=== PATIENT | female | born 1935 | race African-American/Black ===

== ENCOUNTER 2020-03-16 20:04 | Emergency (ER) | payer MEDICARE ==
[~2020-03-16] VITALS: Ht 154.9 cm; Wt 95.7 kg
[2020-03-16 20:05] VITALS: BP 135/77
[2020-03-16] MEDS ORDERED: Pantoprazole Inj IV ONE (20:15)
[2020-03-16] MEDS ORDERED: Morphine Sulfate 4mg/ml Inj (IV USE ONLY) IVP ONE (20:15)
[2020-03-16] MEDS ORDERED: Omnipaque-300 100ml vial INJ PRN (20:15)
--- NOTE | 2020-03-16 20:24 | Emergency Room Report ---
History of Present Illness General Chief Complaint: Pain Present Illness HPI 84-year-old female here with nontraumatic back pain and black stool. Patient says that she was released from a rehab facility earlier today and she was at home and then had the sudden onset of lower back pain rating down her bilateral lower extremities. Patient is an extremely poor historian and is unable to give further details regarding the back pain. She says that she also has been noticing black stool over the past several days. She feels generally weak. No fevers, chills, chest pain, palpitations, shortness of breath, dysuria. No saddle anesthesia. No urinary or fecal retention or incontinence. Allergies: Uncoded Allergies: ASA (Allergy, Unknown, 03/16/20) PCN (Allergy, Unknown, 03/16/20) SULFA (Allergy, Unknown, 03/16/20) COVID-19 Screening Contact w/high risk pt: No Experienced COVID-19 symptoms?: No COVID-19 Testing performed COLLISION ESTIMATOR: No Review of Systems All Other Systems: negative except mentioned in HPI Physical Exam Vital Signs Date Time Temp Pulse Resp B/P (MAP) Pulse Ox O2 Delivery O2 Flow Rate FiO2 03/16/20 20:00 110 18 211/137 (161) 96 Room Air Sp02 EP Interpretation: reviewed, normal General Appearance: no apparent distress, alert, non-toxic, other - Morbidly obese. Appears chronically ill Head: normocephalic, atraumatic Eyes: bilateral eye normal inspection, bilateral eye PERRL ENT: hearing grossly normal, normal pharynx, no angioedema, normal voice Neck: full range of motion, supple/symm/no masses Respiratory: chest non-tender, lungs clear, normal breath sounds, speaking full sentences Cardiovascular #1: regular rate, rhythm, no edema Cardiovascular #2: 2+ carotid (R), 2+ carotid (L), 2+ radial (R), 2+ radial (L), 2+ dorsalis pedis (R), 2+ dorsalis pedis (L) Gastrointestinal: normal bowel sounds, soft, non-distended, no guarding, no rebound, other - Mild diffuse abdominal tenderness on palpation. No distention Rectal: deferred Genitourinary: normal inspection, no CVA tenderness Musculoskeletal: back normal, normal range of motion, calf tenderness, gait/station normal, non-tender Neurologic: alert, motor strength/tone normal, oriented x3, sensory intact, speech normal Psychiatric: judgement/insight normal, memory normal, mood/affect normal, no suicidal/homicidal ideation Lymphatic: no adenopathy Medical Decision Making Diagnostic Impression: Primary Impression: Diverticulitis Additional Impression: Melena ER Course CT abdomen pelvis without contrast: Minimal possible fat stranding along the distalmost descending colon could represent mild acute uncomplicated diverticulitis without perforation or abscess. Severe pancolonic diverticulosis. Multilevel age-related degenerative spine findings and osteopenia without acute fracture Laboratory Tests Test 03/16/20 20:15 White Blood Count 12.8 K/UL (4.8-10.8) H Red Blood Count 5.19 M/UL (4.20-5.40) Hemoglobin 14.8 G/DL (12.0-16.0) Hematocrit 47.7 % (37.0-47.0) H Mean Corpuscular Volume 92 FL (80-99) Mean Corpuscular Hemoglobin 28.5 PG (27.0-31.0) Mean Corpuscular Hemoglobin Concent 31.0 G/DL (32.0-36.0) L Red Cell Distribution Width 15.6 % (11.6-14.8) H Platelet Count 294 K/UL (150-450) Mean Platelet Volume 7.9 FL (6.5-10.1) Neutrophils (%) (Auto) 77.2 % (45.0-75.0) H Lymphocytes (%) (Auto) 15.6 % (20.0-45.0) L Monocytes (%) (Auto) 5.3 % (1.0-10.0) Eosinophils (%) (Auto) 0.9 % (0.0-3.0) Basophils (%) (Auto) 1.0 % (0.0-2.0) Prothrombin Time 11.0 SEC (9.30-11.50) Prothrombin Time INR 1.0 (0.9-1.1) Activated Partial Thromboplast Time 24 SEC (23-33) Sodium Level 138 MMOL/L (136-145) Potassium Level 5.1 MMOL/L (3.5-5.1) Chloride Level 103 MMOL/L (98-107) Carbon Dioxide Level 22 MMOL/L (21-32) Anion Gap 13 mmol/L (5-15) Blood Urea Nitrogen 29 mg/dL (7-18) H Creatinine 2.0 MG/DL (0.55-1.30) H Estimated Glomerular Filtration Rate 23.8 mL/min (>60) Glucose Level 273 MG/DL (74-106) H Calcium Level 10.3 MG/DL (8.5-10.1) H Total Bilirubin 0.3 MG/DL (0.2-1.0) Aspartate Amino Transferase (AST) 37 U/L (15-37) Alanine Aminotransferase (ALT) 18 U/L (12-78) Alkaline Phosphatase 106 U/L (46-116) Troponin I 0.005 ng/mL (0.000-0.056) Total Protein 7.2 G/DL (6.4-8.2) Albumin 3.1 G/DL (3.4-5.0) L Globulin 4.1 g/dL Albumin/Globulin Ratio 0.8 (1.0-2.7) L Lipase 169 U/L (73-393) 84-year-old female here with lower abdominal pain and lower back pain. Patient was hemodynamically stable in the emergency department. She is complaining of melanotic stool. Stool was Hemoccult positive. CT abdomen pelvis had to be performed without IV contrast because of patient's chronically elevated creatinine of 2.0. CT did show evidence of diverticulitis in the distal colon. She was given a dose of Zosyn in the emergency department. No evidence of sepsis. Received IV pain meds with good resolution of her pain. No evidence of anemia. CBC showed a mild leukocytosis but was otherwise unremarkable. CMP normal. Patient will be transferred to [facility]. I spoke with a Dr. Wakefield who accepted the patient for transfer. Last Vital Signs Date Time Temp Pulse Resp B/P (MAP) Pulse Ox O2 Delivery O2 Flow Rate FiO2 03/16/20 20:00 110 18 211/137 (161) 96 Room Air Ramon Parrish M.D. Mar 16, 2020 20:24
[2020-03-16 20:59] LABS: CALCIUM 10.3 MG/DL (8.5-10.1); POTASSIUM 5.1 MMOL/L (3.5-5.1)
[2020-03-16 21:04] LABS: ALBUMIN 3.1 G/DL (3.4-5.0); ALBUMIN/GLOBULIN RATIO 0.8 (1.0-2.7); BILIRUBIN,TOTAL 0.3 MG/DL (0.2-1.0)
[2020-03-16 21:08] LABS: EOSINOPHILS % (AUTO) 0.9 % (0.0-3.0); HEMATOCRIT 47.7 % (37.0-47.0); HEMOGLOBIN 14.8 G/DL (12.0-16.0); LYMPHOCYTES % (AUTO) 15.6 % (20.0-45.0); MEAN CORPUSCULAR VOLUME 92 FL (80-99); MONOCYTES % (AUTO) 5.3 % (1.0-10.0); NEUTROPHILS % (AUTO) 77.2 % (45.0-75.0); PLATELET COUNT 294 K/UL (150-450); RED BLOOD COUNT 5.19 M/UL (4.20-5.40); RED CELL DISTRIBUTION WIDTH 15.6 % (11.6-14.8); WHITE BLOOD COUNT 12.8 K/UL (4.8-10.8)
--- NOTE | 2020-03-16 21:54 | Diagnostic Imaging Report ---
EXAM: CT Abdomen and Pelvis Without Intravenous Contrast CLINICAL HISTORY: PAIN TECHNIQUE: Axial computed tomography images of the abdomen and pelvis without intravenous contrast. CTDI is 14 mGy and DLP is 709.1 mGy-cm. One or more of the following dose reduction techniques were used: automated exposure control, adjustment of the mA and/or kV according to patient size, use of iterative reconstruction technique. Coronal and sagittal reformatted images were created and reviewed. COMPARISON: No relevant prior studies available. FINDINGS: Limitations: Study limited due to lack of IV contrast. Lung bases: Unremarkable. No mass. No consolidation. ABDOMEN: Liver: Indeterminate peripherally calcified 2.3 cm right hepatic lobe dome lesion. Additional smaller likely benign hepatic hypodensities measure up to 1.5 cm in the right lobe, probably representing benign cyst requiring no additional follow-up. Gallbladder and bile ducts: Unremarkable. No calcified stones. No ductal dilation. Pancreas: Unremarkable. No ductal dilation. Spleen: Unremarkable. No splenomegaly. Adrenals: Unremarkable. No mass. Kidneys and ureters: Benign right renal cysts up to 2.5 cm requiring no additional follow-up. Otherwise unremarkable kidneys. No obstructing stones. No hydronephrosis. Stomach and bowel: Minimal possible fat stranding along the distalmost descending colon could represent mild acute uncomplicated diverticulitis without perforation or abscess. Severe pancolonic diverticulosis. Small periumbilical hernia containing non-obstructed small bowel loops. PELVIS: Appendix: No findings to suggest acute appendicitis. Bladder: Unremarkable. No stones. Reproductive: Hysterectomy. ABDOMEN and PELVIS: Intraperitoneal space: Unremarkable. No free air. No significant fluid collection. Bones/joints: Multilevel age-related degenerative spine findings and osteopenia. No acute fracture. No dislocation. Soft tissues: See above. Vasculature: Unremarkable. No abdominal aortic aneurysm. Lymph nodes: Unremarkable. No enlarged lymph nodes. IMPRESSION: 1. Study limited due to lack of IV contrast. 2. Minimal possible fat stranding along the distalmost descending colon could represent mild acute uncomplicated diverticulitis without perforation or abscess. 3. Consider if felt to alter management outpatient MRI liver without and with IV contrast to further characterize peripherally calcified hepatic mass. 4. Hysterectomy. 5. Severe pancolonic diverticulosis. 6. Multilevel age-related degenerative spine findings and osteopenia.
[2020-03-16] MEDS ORDERED: Piperacillin/Tazobactam 3.375 GM in NS 110 ML IVPB ONE (22:00)
[2020-03-16 23:54] VITALS: BP 129/81
[2020-03-17 01:10] VITALS: BP 116/62
[2020-03-17 01:30] VITALS: BP 116/62
== END 2020-03-17 01:30 | disposition other institution (70) ==
LOC: EDBD 20:04 → EMR 21:12
DX: K57.92 Diverticulitis of intestine, part unspecified, without perforation or abscess without bleeding (principal); K92.1 Melena; M79.605 Pain in left leg; M79.604 Pain in right leg; Z88.6 Allergy status to analgesic agent; Z88.2 Allergy status to sulfonamides; Z88.0 Allergy status to penicillin; E66.01 Morbid (severe) obesity due to excess calories; Z90.710 Acquired absence of both cervix and uterus; K42.9 Umbilical hernia without obstruction or gangrene
CPT/HCPCS: 36415; 74176; 80053; 83690; 84484; 85025; 85610; 85730; 86850; 86900; 86901; 96361; 96365; 96375; 99284; C9113; J2270; J2543; J7030